=== PATIENT | male | born 1990 | race Caucasian/White ===

== ENCOUNTER 2020-07-13 22:13 | Emergency (ER) | payer OTHER ==
[~2020-07-13] VITALS: Ht 180.3 cm; Wt 72.6 kg
[2020-07-13 22:14] VITALS: BP 126/79
[2020-07-13] MEDS ORDERED: LORAZEPAM 0.5 MG TABLET PO ONE (22:30)
[2020-07-13] MEDS ORDERED: LORAZEPAM 0.5 MG TABLET ONE ×2 (22:32→22:34)
== END 2020-07-14 00:09 | disposition home or self-care (01) ==
LOC: ER 22:13
DX: F12.929 Cannabis use, unspecified with intoxication, unspecified (principal); R00.0 Tachycardia, unspecified; F41.9 Anxiety disorder, unspecified; F32.9 Major depressive disorder, single episode, unspecified